=== PATIENT | male | born 1990 | race Caucasian/White ===

== ENCOUNTER 2016-12-30 16:00 | Emergency (ER) | payer OTHER ==
[2016-12-30 16:30] VITALS: RESP 16; TEMP 97.9
[2016-12-30] MEDS ORDERED: NS 1,000 ML IV ONE (16:59)
[2016-12-30] MEDS ORDERED: ONDANSETRON 4 MG/2 ML VIAL IVP ONE (16:59)
--- NOTE | 2016-12-30 17:08 | EDPHY ---
H & P Stated Complaint: NAUSEA,DIARRHEA, SHAKEY, STARTED SUDDENLY AFTER EATING LUNCH HPI/ROS: CHIEF COMPLAINT: malaise, nausea, near-syncope HISTORY OF PRESENT ILLNESS: approximately 1 hour after eating lunch today he started feeling ill. He says "I just felt awful." He complains of left-sided abdominal discomfort, nausea, Diarrhea,near syncope, weakness. No fever or chills. No headache. No neck pain or stiffness. No cough or congestion. No sinus complaints. No urinary complaints. No rashes or lesions. No trauma. he tried drinking between 1 and 1.5 L of water which seems to have helped a little bit. No exacerbating factors. He has not had anything else to eat. No other associated complaints or modifying factors. visiting from [facility] for the week. REVIEW OF SYSTEMS: Ten systems reviewed and are negative unless otherwise noted in the HPI EXAMINATION General Appearance: Alert, no distress Head: normocephalic, atraumatic Eyes: Pupils equal and round, no conjunctival pallor or injection ENT, Mouth: Mucous membranes moist . Uvula midline. No erythema or edema. Neck: Normal inspection, supple, non-tender . Painless range of motion all planes. No meningismus. Respiratory: Lungs are clear to auscultation . No wheezing, rhonchi or crackles. Cardiovascular: Regular rate and rhythm. No murmur. Pulses intact distally. Gastrointestinal: Abdomen is soft With mild epigastric and left upper quadrant tenderness. No rebound. No guarding. No tympany. No CVA tenderness. Nonacute abdomen. Neurological: A&O, nonfocal, normal gait Skin: Warm and dry, no rash Extremities: Nontender, no pedal edema Psychiatric: Mood and affect normal DIFFERENTIAL DIAGNOSES: Including but not limited to cholecystitis, pancreatitis, cholelithiasis, viral illness, influenza, gastritis MDM: 5:05 p.m. generalize malaise with nausea, left-sided abdominal pain 1 hour after eating lunch. He has no headache or neck pain. No fever or chills. No lower extremity complaints. No abdominal or urinary complaints her vital signs are stable. Laboratory studies been ordered. IV fluid and Zofran will be administered 6:35 p.m. I have re-evaluated the patient. At this time he is feeling significantly better after his IV fluid resuscitation. Labs are all perfectly within normal limits including a negative influenza swab. He is feeling much better and ready to be discharged home. I encouraged him to increase his fluid intake as he is visiting from [place] and likely needs more fluids. He is feeling much better, ambulatory and happy with this plan. He will follow up with his primary care physician upon return home. SUPERVISION: This patient was independently evaluated without the aide of supervising physician. Source: Patient Exam Limitations: No limitations - Personal History Current Tetanus Diphtheria and Acellular Pertussis (TDAP): Unsure - Medical/Surgical History Other PMH: ARM SURGERY A CHILD - Social History Smoking Status: Never smoked Constitutional: Initial Vital Signs Temperature (C) 97.9 F 12/30/16 16:28 Heart Rate 89 12/30/16 16:28 Respiratory Rate 16 12/30/16 16:28 Blood Pressure 154/94 H 12/30/16 16:28 O2 Sat (%) 97 12/30/16 16:28 O2 Delivery Mode Room Air Allergies/Adverse Reactions: No Known Allergies Allergy (Unverified 12/30/16 16:27) Home Medications: Medication Instructions Recorded NK [No Known Home Meds] 12/30/16 Medical Decision Making - Data Points Laboratory Results: Laboratory Results 12/30/16 17:00 12/30/16 17:00 12/30/16 12/30/16 12/30/16 17:38 17:00 17:00 WBC RBC Hgb Hct MCV MCH MCHC RDW Plt Count MPV Neut % (Auto) Lymph % (Auto) Maverick % (Auto) Eos % (Auto) Baso % (Auto) Nucleat RBC Rel Count Absolute Neuts (auto) Absolute Lymphs (auto) Absolute Monos (auto) Absolute Eos (auto) Absolute Basos (auto) Absolute Nucleated RBC Immature Gran % Immature Gran # Sodium 140 mEq/L mEq/L (134-144) Potassium 4.0 mEq/L mEq/L (3.5-5.2) Chloride 102 mEq/L mEq/L (97-110) Carbon Dioxide 26 mEq/l mEq/l (22-31) Anion Gap 12 mEq/L mEq/L (8-16) BUN 11 mg/dL mg/dL (7-23) Creatinine 0.8 mg/dL mg/dL (0.7-1.3) Estimated GFR > 60 Glucose 97 mg/dL mg/dL (70-100) Calcium 10.1 mg/dL mg/dL (8.5-10.4) Total Bilirubin 1.3 mg/dL mg/dL (0.1-1.4) Conjugated Bilirubin 0.5 mg/dL mg/dL (0.0-0.5) Unconjugated Bilirubin 0.8 mg/dL mg/dL (0.0-1.1) AST 29 IU/L IU/L (17-59) ALT 39 IU/L IU/L (21-72) Alkaline Phosphatase 80 IU/L IU/L (38-126) Total Protein 8.9 g/dL H g/dL (6.3-8.2) Albumin 5.1 g/dL H g/dL (3.5-5.0) Lipase 140.0 IU/L IU/L (23-300) Urine Color PALE YELLOW Urine Appearance CLEAR Urine pH 6.0 (5.0-7.5) Ur Specific [place] 1.003 (1.002-1.030) Urine Protein NEGATIVE (NEGATIVE) Urine Ketones NEGATIVE (NEGATIVE) Urine Blood NEGATIVE (NEGATIVE) Urine Nitrate NEGATIVE (NEGATIVE) Urine Bilirubin NEGATIVE (NEGATIVE) Urine Urobilinogen NEGATIVE EU EU (0.2-1.0) Ur Leukocyte Esterase NEGATIVE (NEGATIVE) Ur Culture Indicated? NOT INDICATED (NI) Urine Glucose NEGATIVE (NEGATIVE) Influenza Typ A,B (DFA) NEGATIVE FOR FLU (NEGATIVE) 12/30/16 17:00 WBC 9.50 10^3/uL 10^3/uL (3.80-9.50) RBC 5.33 10^6/uL 10^6/uL (4.40-6.38) Hgb 17.2 g/dL g/dL (13.7-17.5) Hct 46.8 % % (40.0-51.0) MCV 87.8 fL fL (81.5-99.8) MCH 32.3 pg pg (27.9-34.1) MCHC 36.8 g/dL H g/dL (32.4-36.7) RDW 11.9 % % (11.5-15.2) Plt Count 260 10^3/uL 10^3/uL (150-400) MPV 10.5 fL fL (8.7-11.7) Neut % (Auto) 68.0 % % (39.3-74.2) Lymph % (Auto) 21.7 % % (15.0-45.0) Maverick % (Auto) 5.8 % % (4.5-13.0) Eos % (Auto) 3.7 % % (0.6-7.6) Baso % (Auto) 0.5 % % (0.3-1.7) Nucleat RBC Rel Count 0.0 % % (0.0-0.2) Absolute Neuts (auto) 6.46 10^3/uL 10^3/uL (1.70-6.50) Absolute Lymphs (auto) 2.06 10^3/uL 10^3/uL (1.00-3.00) Absolute Monos (auto) 0.55 10^3/uL 10^3/uL (0.30-0.80) Absolute Eos (auto) 0.35 10^3/uL 10^3/uL (0.03-0.40) Absolute Basos (auto) 0.05 10^3/uL 10^3/uL (0.02-0.10) Absolute Nucleated RBC 0.00 10^3/uL 10^3/uL (0-0.01) Immature Gran % 0.3 % % (0.0-1.1) Immature Gran # 0.03 10^3/uL 10^3/uL (0.00-0.10) Sodium Potassium Chloride Carbon Dioxide Anion Gap BUN Creatinine Estimated GFR Glucose Calcium Total Bilirubin Conjugated Bilirubin Unconjugated Bilirubin AST ALT Alkaline Phosphatase Total Protein Albumin Lipase Urine Color Urine Appearance Urine pH Ur Specific [place] Urine Protein Urine Ketones Urine Blood Urine Nitrate Urine Bilirubin Urine Urobilinogen Ur Leukocyte Esterase Ur Culture Indicated? Urine Glucose Influenza Typ A,B (DFA) Medications Given: Discontinued Medications Sodium Chloride (Ns) 1,000 mls @ 0 mls/hr IV ONCE ONE PRN Reason: Wide Open Stop: 12/30/16 17:00 Last Admin: 12/30/16 17:25 Dose: 1,000 mls Ondansetron HCl (Zofran) 4 mg IVP EDNOW ONE Stop: 12/30/16 17:00 Last Admin: 12/30/16 17:34 Dose: 4 mg Departure - Departure Disposition: Home, Routine, Self-Care Clinical Impression: Dehydration Condition: Good Instructions: Dehydration (ED) Additional Instructions: Follow-up with primary care physician upon return home. Return to ER for worsening symptoms, syncope Referrals: ADENIKE BLACKMON [Other] - As per Instructions
[2016-12-30 17:15] LABS: COLOR PALE YELLOW; LEUKOCYTE ESTERASE,URINE NEGATIVE (NEGATIVE); NITRITE,URINE NEGATIVE (NEGATIVE)
[2016-12-30 17:17] LABS: % IMMATURE GRANULYOCYTES 0.3 % (0.0-1.1); ABSOLUTE IMMATURE GRANULOCYTES 0.03 10^3/uL (0.00-0.10); ADD DIFF? NO; ADD MORPH? NO; ADD SCAN? NO; ATYPICAL LYMPHOCYTE FLAG 0 (0-99); FRAGMENT RBC FLAG 0 (0-99); HEMATOCRIT 46.8 % (40.0-51.0); HEMOGLOBIN 17.2 g/dL (13.7-17.5); LEFT SHIFT FLG 0 (0-99); LIPEMIA HEMOLYSIS FLAG 90 (0-99); MEAN CELL HEMOGLOBIN 32.3 pg (27.9-34.1); MEAN CELL HEMOGLOBIN CONCENTR. 36.8 g/dL (32.4-36.7); MEAN CELL VOLUME 87.8 fL (81.5-99.8); MEAN PLATELET VOLUME 10.5 fL (8.7-11.7); PLATELET CLUMPS FLAG 0 (0-99); PLATELET COUNT 260 10^3/uL (150-400); RED BLOOD CELL COUNT 5.33 10^6/uL (4.40-6.38); RED CELL DISTRIBUTION WIDTH 11.9 % (11.5-15.2)
[2016-12-30 17:25] LABS: ALANINE AMINOTRANSFERASE 39 IU/L (21-72); ALBUMIN 5.1 g/dL (3.5-5.0); ALKALINE PHOSPHATASE 80 IU/L (38-126); ANION GAP 12 mEq/L (8-16); ASPARTATE AMINOTRANSFERASE 29 IU/L (17-59); BILIRUBIN,TOTAL 1.3 mg/dL (0.1-1.4); BILIRUBIN-CONJUGATED 0.5 mg/dL (0.0-0.5); BILIRUBIN-UNCONJUGATED 0.8 mg/dL (0.0-1.1); CALCIUM 10.1 mg/dL (8.5-10.4); CARBON DIOXIDE 26 mEq/l (22-31); CHLORIDE 102 mEq/L (97-110); CREATININE 0.8 mg/dL (0.7-1.3); GLOMERULAR FILTRATION RATE > 60; GLUCOSE 97 mg/dL (70-100); SODIUM 140 mEq/L (134-144); TOTAL PROTEIN 8.9 g/dL (6.3-8.2)
[2016-12-30 18:43] VITALS: BP 149/94; PULSE 75; O2SAT 95
== END 2016-12-30 18:43 | disposition home or self-care (01) ==
DX: E86.0 Dehydration (principal)
CPT/HCPCS: 96374; J2405